=== PATIENT | female | born 1960 | race Caucasian/White ===

== ENCOUNTER → 2018-03-04 08:50 | Outpatient (CLI) | payer MEDICARE, MEDICAID ==
--- NOTE | ~2018-03-04 | EC ---
PATIENT:MARVIN AVALOS DATE OF SERVICE: 03/04/18 SEX: F MEDICAL RECORD: [id number] DATE OF : [birth year] LOCATION:[facility] AGE OF PATIENT: 57 ADMISSION DATE: 03/04/18 REFERRING PHYSICIAN: INTERPRETING PHYSICIAN: IKER DEVLIN MD ECHOCARDIOGRAM REPORT ECHO CHARGES 4 ECHO COMPLETE Date: 03/04 CLINICAL DIAGNOSIS: ASSESS EF, RESTARTING CHEMO, HX OF BREAST CA ECHOCARDIOGRAPHIC MEASUREMENTS (adult normal given) AC root (d.<3.7cm) 3.5 cm LV Septum d (<1.2 cm> 1.3 cm Valve Excursion 1.6 cm LV Septum (systole) 1.5 cm Left Atria (s.<4.0cm> 3.9 cm LVPW d(<1.2cm) 1.0 cm RV (d.<2.3cm) 3.8 cm LVPW (sytole) 1.7 cm LV diastole(<5.6CM) 6.1 cm MV E-F(>70mm/sec) cm LV systole 4.6 cm LVOT Diameter 1.8 cm MV exc.(>10mm) 1.3 cm Est.ejection fraction (50-75%) % DOPPLER: LVIT cm/sec A 91.0 cm/sec E 113 cm/sec LA cm/sec RVSP 35 mmHg LVOT 141 cm/sec AOP1/2T m/s Asc. Ao 184 cm/sec RVOT 116 cm/sec RA cm/sec PA 138 cm/sec AV Gradient Peak 13.48mmHg AV Mean 6.69 mmHg AV Area 2.2 cm MV Gradient Peak 4.89 mmHg MV Mean 2.29 mmHg MV Area cm COMMENTS: Packing Line Operator: 2 ESTHELA PAREKH Sealer Dry Cell: 4 Dr. Devlin TAPE# PACS Pericardial Effusion N DATE OF SERVICE: The patient is presenting for transthoracic echocardiogram. FINDINGS: 1. The left ventricle shows evidence of mild left ventricular hypertrophy. Endocardial structures were difficult to visualize. It is a difficult study overall. The overall ejection fraction appears to be preserved. The inflow characteristics are normal. Ejection fraction is 60% to 65%. 2. The right ventricle was mildly dilated with normal function. ECHOCARDIOGRAM REPORT [id number] MARVIN AVALOS 3. The left atrium appears to be grossly normal. 4. The aortic valve is normal. 5. The mitral valve is normal. 6. The tricuspid valve looks overall normal. 7. The pericardium appears to be normal. 8. The pulmonic valve is normal. 9. The right atrium is normal. CONCLUSIONS: The patient has evidence of left ventricular hypertrophy, preserved LV systolic function and mild dilatation of the right ventricular chamber. TRANSINT:[id number] Voice Confirmation ID: [id number] DOCUMENT ID: [id number] IKER DEVLIN MD at 1030 CC: [id number] DICTATION DATE: 03/05/18 1140 PROVIDER RELATIONS MANAGER: 03/05/18 1155 DEP CLI 03/04/18 [facility] [address] [place] [address]
== END | disposition home or self-care (01) ==
LOC: D.NM 08:50
DX: C50.911 Malignant neoplasm of unspecified site of right female breast (principal)